=== PATIENT | male | born 1985 | race African-American/Black ===

== ENCOUNTER 2019-09-21 17:55 | Emergency (ER) | payer OTHER, SELFPAY ==
--- NOTE | ~2019-09-21 | XR_ITS ---
EXAMINATION: XR lumbar spine min 4V DATE: 09/21/2019 18:32 INDICATION: Low back pain TECHNIQUE: Anteroposterior, lateral, and bilateral oblique views of the lumbar spine, and cone-down l ateral view of the lumbosacral junction were obtained. COMPARISON: None. FINDINGS: There is no fracture, dislocation, or subluxation. The vertebral body heights, alignment, a nd intervertebral disc spaces are normal. The paravertebral soft tissues are unremarkable. IMPRESSION: 1. No acute osseous abnormality. Reviewed, dictated and finalized at location A.
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
[2019-09-21 18:05] VITALS: BP 145/83; PULSE 77; RESP 16; TEMP 36.8; O2SAT 100
== END 2019-09-21 18:50 | disposition home or self-care (01) ==
PROVIDERS: Emergency Provider Nurse Practitioner
DX: M54.5 Low back pain (principal); V89.2XXA Person injured in unspecified motor-vehicle accident, traffic, initial encounter
CPT/HCPCS: 72110; 99213; G0463

== ENCOUNTER 2020-08-18 11:00 | Emergency (ER) | payer OTHER, SELFPAY ==
--- NOTE | ~2020-08-18 | XR_ITS ---
EXAMINATION: XR chest 1V portable 08/18/2020 17:11 INDICATION: Cough and body aches PROCEDURE: AP portable chest COMPARISON: 12/30/2005 FINDINGS: The lungs are clear. The cardiomediastinal silhouette is within normal limits. There are no pleural effusions. There is no pneumothorax suspected. IMPRESSION: 1: NO ACUTE CARDIOPULMONARY DISEASE. Reviewed, dictated and finalized at location A.
[2020-08-18 11:25] VITALS: BP 122/70; PULSE 93; RESP 18; TEMP 37; O2SAT 98
[2020-08-18 14:27] VITALS: BP 129/74; PULSE 89; TEMP 37.5; O2SAT 100
[2020-08-18 16:50] VITALS: BP 132/97; PULSE 84; RESP 16; TEMP 36.6; O2SAT 100
[2020-08-18 16:51] VITALS: BP 132/97; PULSE 85; RESP 16; O2SAT 100
--- NOTE | 2020-08-18 16:52 | ECG_ITS ---
Measurements Intervals [place] Rate: 82 P: 167 OR: 160 QRS: 160 QRSD: 80 T: 173 QT: 320 QTc: 374 Interpretive Statements SINUS RHYTHM ARM LEADS REVERSED BASELINE ARTIFACT- I, II, III, AVR, AVL, AVF ATYPICAL ECG Electronically Signed On 08-18-2020 19:57:42 CDT by Delfino Healy D.O.
--- NOTE | 2020-08-18 17:12 | ED.GENADULT ---
HPI - General Adult General Chief complaint: Upper Respiratory Infection Stated complaint: coughing up blood Time Seen by Provider: 08/18/20 16:54 Source: patient, family and old records reviewed Mode of arrival: ambulatory Limitations: no limitations History of Present Illness HPI narrative: Patient is a 34-year-old male who presents to emergency department for evaluation fever chills body aches sore throat productive cough of clear phlegm for the last 4 days denies sick contacts has been taking siea-gfa-covvviy medications with minimal improvement notes generalized aches denies vomiting diarrhea. Patient notes he is otherwise healthy and denies tobacco abuse or alcohol abuse patient was not vaccinated for Covid Related Data Allergies Allergy/AdvReac Type Severity Reaction Status Date / Time No Known Allergies Allergy Unknown Unverified 05/25/17 17:33 Review of Systems Review of Systems: All systems reviewed & are unremarkable except as noted in HPI and below PMFSH Social History Social History Smoking status: Never smoker Gender identity (if verbalized by the patient): Male Exam Narrative: Exam Narrative: GENERAL: Ill-appearing, well-nourished, and in no acute distress. HEAD: Normocephalic, atraumatic. EYES: PERRLA and EOMI. ENT: Nares clear, no rhinorrhea or epistaxis. Mucous membranes moist. Oropharynx with erythema and without tonsillar hypertrophy exudate or other lesions. Uvula midline no trismus or drooling NECK: Supple. No adenopathy or masses. CHEST: Clear to auscultation. No respiratory distress. No wheezes rales or rhonchi HEART: Regular rate and rhythm. No murmur heard. EXTREMITIES: Normal range of motion. No edema. SKIN: Warm, dry, no rash. NEURO: No focal deficits. Alert and oriented x3. Cranial nerves II through XII grossly intact PSYCH: Normal mood and affect. Course Course Emergency Course: Patient in the room at this time no distress aware of case findings treatment plan and diagnosis afebrile nontoxic-appearing felt appropriate for outpatient reevaluation agreeing to follow-up with primary care pending Covid 19 testing patient notes that his primary care will be responsible for getting his results patient was hydrated and given medications with improvement no vomiting diarrhea or hypoxemia Vital Signs Vital signs: Vital Signs Temperature 98.6 F 08/18/20 11:25 Pulse Rate 93 08/18/20 11:25 Respiratory Rate 18 08/18/20 11:25 Blood Pressure 122/70 08/18/20 11:25 Pulse Oximetry 98 08/18/20 11:25 Temperature 97.8 F 08/18/20 16:50 Pulse Rate 84 08/18/20 16:50 Respiratory Rate 16 08/18/20 16:50 Blood Pressure 132/97 H 08/18/20 16:50 Pulse Oximetry 100 08/18/20 16:50 Medical Decision Making MDM Narrative Medical decision making narrative: Patient presented with upper respiratory symptoms nontoxic-appearing afebrile resting comfortably in the room at this time aware of case findings treatment plan diagnosis agreeing to follow-up for his COVID-19 results and provided with reasons to return Vital Signs Vital Signs: Vital Signs Temperature 98.6 F 08/18/20 11:25 Pulse Rate 93 08/18/20 11:25 Respiratory Rate 18 08/18/20 11:25 Blood Pressure 122/70 08/18/20 11:25 Pulse Oximetry 98 08/18/20 11:25 Temperature 97.8 F 08/18/20 16:50 Pulse Rate 84 08/18/20 16:50 Respiratory Rate 16 08/18/20 16:50 Blood Pressure 132/97 H 08/18/20 16:50 Pulse Oximetry 100 08/18/20 16:50 Lab Data Labs: Strep Screen Presumptive Negative *(Reference Range: Negative)* Imaging Data Radiologist's impression: ITS Impressions Chest X-Ray 08/18/20 17:16 IMPRESSION: 1: NO ACUTE CARDIOPULMONARY DISEASE. ECG Data EKG #1: ECG completion date: 08/18/20 ECG completion time: 16:56 EKG Interpretation: n
[2020-08-18 17:31] VITALS: BP 136/81; PULSE 82; RESP 16; O2SAT 98
[2020-08-18] MEDS: SODIUM CHLORIDE 0.9% IV 1,000 ML 999 ML IV CONT (17:33)
[2020-08-18] MEDS: DEXAMETHASONE SOD PHOS INJ 4 MG/ML VIAL 10 MG IV PUSH (17:34)
[2020-08-18] MEDS: IBUPROFEN IV 800 MG/200 ML 800 MG/200 ML BAG 400 MG IVPB (17:46)
[2020-08-18] MEDS: FAMOTIDINE 20 MG/2 ML VIAL IV PUSH (17:46)
[2020-08-18 18:45] VITALS: BP 133/84; PULSE 79; RESP 16; O2SAT 98
[2020-08-19 17:40] LABS: SARS-CoV-2 RNA PCR Negative
== END 2020-08-18 18:45 | disposition home or self-care (01) ==
PROVIDERS: Emergency Medicine Emergency Medical Services; Emergency Provider Emergency Medicine
DX: J06.9 Acute upper respiratory infection, unspecified (principal)
CPT/HCPCS: 71045; 87081; 87880; 93005; 96365; 96375; 99284; C9803; J1100; J1741; J7030; U0003; U0005

== ENCOUNTER 2021-09-20 11:14 | Emergency (ER) | payer OTHER, SELFPAY ==
[2021-09-20 11:28] VITALS: BP 125/78; PULSE 81; RESP 16; TEMP 36.8; O2SAT 99
--- NOTE | 2021-09-20 11:52 | ED.SKABFB ---
HPI - Skin/Abscess/Foreign Bdy General Chief complaint: Skin/Abscess/Foreign Body Stated complaint: right hand infection Source: patient Mode of arrival: ambulatory Limitations: no limitations History of Present Illness HPI narrative: 35-year-old male presented for complaint of right hand pain, swelling, redness and pus since yesterday. Reports decreased ROM to right index finger. He endorses about 2 nights ago cut it on a cage or his dog might have accidentally bit him. States this dog had captured a possum earlier in the day. At that time he noticed a small laceration, washed with hand mixing tank operator and water, and applied liquid bandaid to the site. Pt is unsure tetanus vaccination. MD complaint: rash Related Data Allergies Allergy/AdvReac Type Severity Reaction Status Date / Time No Known Allergies Allergy Unknown Verified 09/20/21 11:26 Review of Systems Review of Systems: CONSTITUTIONAL: Denies body aches, fever, chills, or sweats. CARDIOVASCULAR: Denies chest pain, palpitations, or edema. RESPIRATORY: Denies cough or dyspnea. GASTROINTESTINAL: Denies abdominal pain, nausea, vomiting, or diarrhea. SKIN: reports open wound to hand MUSCULOSKELETAL: Denies back pain, joint pain, or myalgia. NEUROLOGIC: Denies headache, numbness, tingling, or weakness. [facility] Social History Social History Smoking status: Never smoker Gender identity (if verbalized by the patient): Male Comments At time of signature, I have reviewed and agree with nursing past medical, surgical, social and family history unless otherwise noted. Please see nursing chart for further information. There is no relevant family history pertinent to the presenting complaint Exam Narrative: GENERAL: Well-appearing ENT: Mucous membranes moist. CHEST: Clear to auscultation. No respiratory distress. HEART: Regular rate and rhythm. SKIN: Warm, dry. Right hand with erythema and swelling, laceration approx 0.5cm to 2nd MCP, purulent drainage, limited ROM at MCP. Pulses palpable and equal bilaterally, sensation intact, cap refill <3seconds. NEURO: Alert and oriented x3. PSYCH: Normal mood and affect Course Course Emergency Course: Patient is aware of diagnosis, understands and agrees to treatment plan. Anticipatory guidance given. Patient agrees to follow-up as directed and is aware of reasons to seek care at the emergency department. Portions of this record may have been created with voice recognition software Level of Care: Express Care Visit Vital Signs Vital signs: Vital Signs Temperature 98.2 F 09/20/21 11:28 Pulse Rate 81 09/20/21 11:28 Respiratory Rate 16 09/20/21 11:28 Blood Pressure 125/78 09/20/21 11:28 Pulse Oximetry 99 09/20/21 11:28 Oxygen Delivery Room Air 09/20/21 11:28 Temperature 98.2 F 09/20/21 11:28 Pulse Rate 81 09/20/21 11:28 Respiratory Rate 16 09/20/21 11:28 Blood Pressure 125/78 09/20/21 11:28 Pulse Oximetry 99 09/20/21 11:28 Oxygen Delivery Room Air 09/20/21 11:28 Reviewed MDM - Skin/Abscess/Foreign Bdy MDM Narrative Medical decision making narrative: Wound cleansed thoroughly, expressed small amount of purulent drainage on exam. Pt tolerated well. Bandaid and MERARI applied. Advised supportive measures and signs/symptoms to go to the ER. Pt is appropriate for outpt treatment and f/u. Instructed patient to go to nearest ER immediately for any worsening symptoms. Differential Diagnosis Differential diagnosis: Likely abscess of skin or subcutaneous tissue, urticaria, herpes zoster, cellulitis and contact dermatitis Discharge Plan Discharge Clinical Impression: Cellulitis Qualifiers: Site of cellulitis: extremity Site of cellulitis of extremity: upper extremity Laterality: right Qualified Code(s): L03.113 - Cellulitis of right upper limb Patient Disposition: Home, Self-Care Condition: Stable Instructions: Anti
[2021-09-20] MEDS: TETANUS,DIPHTHERIA,AC PERTUSSIS ADULT (0.5 ML) BOOSTRIX IM (12:11)
== END 2021-09-20 12:40 | disposition home or self-care (01) ==
PROVIDERS: Emergency Provider Nurse Practitioner Family
DX: L03.113 Cellulitis of right upper limb (principal); Z23 Encounter for immunization; Z86.16 Personal history of COVID-19
CPT/HCPCS: 87070; 87075; 87147; 87186; 87205; 90471; 90715; 99213; G0463

== ENCOUNTER 2022-12-18 12:46 | Emergency (ER) | payer OTHER, SELFPAY ==
[2022-12-18 12:59] VITALS: BP 134/85; PULSE 70; RESP 14; TEMP 36.4; O2SAT 100
--- NOTE | 2022-12-18 13:30 | ED.DENTAL ---
HPI - Dental/Oral General Chief complaint: Dental/Oral Stated complaint: face pain left side Time Seen by Provider: 12/18/22 13:30 Source: patient Mode of arrival: ambulatory Limitations: no limitations History of Present Illness HPI Narrative: 37-year-old male presents with complaint of pain and swelling to left side of face, left upper dental pain. Patient reports history of previous infection to same area 6 months ago. Took amoxicillin and went away. Patient has been told he needs to follow-up with dentist, has piece of tooth left upper gum and also needs wisdom teeth removed. Patient states that procedure is too expensive. All systems reviewed and negative except as noted above. Related Data Allergies Allergy/AdvReac Type Severity Reaction Status Date / Time No Known Allergies Allergy Unknown Verified 12/18/22 12:56 Review of Systems Review of Systems: CONSTITUTIONAL: Denies fever, chills, or sweats. EYES: Denies visual changes, redness, or discharge. ENT: Denies rhinorrhea, congestion, sore throat, or otalgia. Reports left upper dental pain. CARDIOVASCULAR: Denies chest pain, palpitations, or edema. RESPIRATORY: Denies cough or dyspnea. GASTROINTESTINAL: Denies abdominal pain, nausea, vomiting, or diarrhea. GENITOURINARY: Denies dysuria or hematuria. SKIN: Denies rash or itching. MUSCULOSKELETAL: Denies back pain, joint pain, or myalgia. NEUROLOGIC: Denies headache, numbness, or weakness. PSYCHIATRIC: Denies anxiety or depression. All other systems reviewed are negative, except as documented in HPI. PMFSH Social History Social History Smoking status: Never smoker Gender identity (if verbalized by the patient): Male Comments At time of signature, agree with nursing past medical, surgical, social and family history. There is no relevant family history pertinent to the presenting complaint. Exam Narrative: GENERAL: This is a well-nourished, well-developed patient, in no apparent distress. HEAD: normocephalic, atraumatic. EYES: PERRL. Sclera clear/white. Vision is grossly intact. EARS: External ears normal NOSE: External nose normal MOUTH: redness and swelling to L upper gums with pain on palpation of tooth #15 and #16 NECK: Neck supple, non-tender without lymphadenopathy, masses or thyromegaly. CARDIOVASCULAR: Regular rate and rhythm without murmurs, gallops, or rubs. RESPIRATORY: Clear to auscultation. Breath sounds equal bilaterally. No wheezes, rales, or rhonchi. SKIN: warm, Dry, intact with no suspicious lesions or rash, good texture and turgor. NEURO: awake, alert, and oriented to person, place and time. There were no obvious focal neurologic abnormalities. EXTREMITIES: No joint tenderness, effusion, or edema noted. Course Course Level of Care: Express Care Visit Vital Signs Vital signs: Vital Signs Temperature 36.4 C 12/18/22 12:59 Pulse Rate 70 12/18/22 12:59 Respiratory Rate 14 12/18/22 12:59 Blood Pressure 134/85 12/18/22 12:59 Pulse Oximetry 100 12/18/22 12:59 Oxygen Delivery Room Air 12/18/22 12:59 Temperature 36.4 C 12/18/22 12:59 Pulse Rate 70 12/18/22 12:59 Respiratory Rate 14 12/18/22 12:59 Blood Pressure 134/85 12/18/22 12:59 Pulse Oximetry 100 12/18/22 12:59 Oxygen Delivery Room Air 12/18/22 12:59 Reviewed MDM - Dental/Oral MDM Narrative Medical decision making narrative: Patient is aware of diagnosis, understands and agrees to treatment plan. Anticipatory guidance given. Patient agrees to follow-up as directed and is aware of reasons to seek care at the emergency department. Portions of this record may have been created with voice recognition software Differential Diagnosis Differential diagnosis: Likely toothache Discharge Plan Discharge Clinical Impression: Dental infection Patient Disposition: Home, Self-Care Condition: Stable Instruc
== END 2022-12-18 13:45 | disposition home or self-care (01) ==
PROVIDERS: Emergency Provider Nurse Practitioner Family
DX: K04.7 Periapical abscess without sinus (principal)
CPT/HCPCS: 99213; G0463